=== PATIENT | female | born 1975 | race Caucasian/White ===

== ENCOUNTER 2021-03-26 12:12 | Emergency (ER) | payer OTHER ==
[~2021-03-26] VITALS: Ht 160 cm; Wt 104.3 kg
[2021-03-26] MEDS ORDERED: JARDIANCE10 MG PO (12:26)
[2021-03-26] MEDS ORDERED: MELOXICAM7.5 MG (12:43)
[2021-03-26] MEDS ORDERED: TOPROL XL25 MG PO (12:43)
[2021-03-26] MEDS ORDERED: PREDNISONE 10 M10 MG PO (14:11)
[2021-03-26] MEDS ORDERED: EPIPEN 2-P0.3 MG/0.3 IM (14:11)
[2021-03-26 14:19] VITALS: BP 159/100
== END 2021-03-26 14:20 | disposition home or self-care (01) ==
LOC: M.ERS 12:12
DX: T78.1XXA Other adverse food reactions, not elsewhere classified, initial encounter (principal); R11.2 Nausea with vomiting, unspecified; R20.2 Paresthesia of skin; R22.0 Localized swelling, mass and lump, head; I10 Essential (primary) hypertension; E11.9 Type 2 diabetes mellitus without complications; Z79.899 Other long term (current) drug therapy; Z88.8 Allergy status to other drugs, medicaments and biological substances; Z88.2 Allergy status to sulfonamides; X58.XXXA Exposure to other specified factors, initial encounter